=== PATIENT | female | born 1985 | race Caucasian/White ===

== ENCOUNTER 2016-09-27 14:44 | Emergency (ER) | payer OTHER ==
[~2016-09-27] VITALS: Ht 175.3 cm; Wt 107.0 kg
[~2016-09-27 14:44] MED LIST: BENTYL20 MG PO; CIPRO 500MG TA500 MG PO; FLAGYL 500MG.500 MG PO; NOMEDS XX; PHENERGAN 25MG.25 M1 PO; SEASONIQUE1 TAB PO; ZOFRAN4 MG PO
[2016-09-27] MEDS ORDERED: ZOLOFT 50MG TAB50 MG PO (15:04)
[2016-09-27] MEDS ORDERED: FLEXERIL10 MG PO (15:49)
--- NOTE | 2016-09-27 15:57 | Urgent Treatment Center Report ---
History of Present Issue Date/Time Seen by Provider 09/27/16 1512 Visit Reason Pt arrived:Walked Presenting Problem:PT STATES HER BACK WAS HURTING LAST NIGHT BEFORE BED. SHE SAID IT HURTS THE WORSE WHEN SHE TRIES TO SIT, LOWER RIGHT SIDE AND INTO HER RIGHT HIP. Location if Accident: Onset of symptoms date/time:/ or onset unknown for:MEDICAL HX UNKNOWN Have you (or family members/close friends) recently traveled outside the [place]? N If Yes, where/when: Have you had exposure to infectious disease within the past month? TB? Other? Specify: Here w/ girlfriend c/o low back pain radiating to right buttock. Denies N/T or pain into hip or RLE. No known injury. Reports she was ok last night. Washed dishes. Sat on the bed and noticed her back "getting tight". Woke this morning w / pain worse and a hard time getting up. Pain 5/10, aching but tight at times. 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 Urinating and stooling without difficulty. Took ibuprofen early this morning and tried to go into work but pain was worse while there. Came home and used heat and took a leftover norco from surgery. Pain improved "but not sure if due to ibuprofen, rest, heat or norco". No change ROM but more painful to use back, sit up straight, sit too long, walk too much. Better w/ some movement. Source patient, family (girlfriend) Exam Limitations no limitations ALLERGIES Coded Allergies: No Known Allergies (07/18/16) Home Medications Reported Medications Sertraline Hcl (Zoloft 50MG) 25 MG PO DAILY History Medical History General CAD? No Angina: No LA: No Hypertension? No Hyperlipidemia? No CHF? No DVT? No PE? No COPD? No Asthma? No Anemia? No GERD? No Gastric ulcers? No GI Bleed? No Hernia? No Thyroid Problems? No Hypothyroidism? No CVA? No Seizures? No Diabetes? No Insulin Dependent: No Insulin Pump: No Home FSBS? No Renal Insuffiency? No UTI? No Stones? No BPH? No GB Disease: Yes Nephritic Syndrome? No Asplenia? No Hepatitis? No Sickle Cell Disease? No Arthritis? No Migraines? No Cataracts? No Glaucoma? No MRSA? No HIV? No TB? No Anxiety? No Depression? No Cancer? No More? 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 Family History Family HX Diabetes Yes CAD No Hypertension No Hyperlipidemia No Cancer Yes TB No Social History Smoking Hx Smoker: Current Every Day Smoker Tobacco: Yes Type Cigarettes Packs/day < 1 Pack Alcohol Alcohol: No Review of Systems All Other Systems Reviewed and Negative Constitutional denies fever, denies malaise Respiratory denies shortness of breath Cardiovascular denies chest pain Gastrointestinal denies nausea Musculoskeletal see HPI Skin denies change in color, denies lesions, denies rash Psychiatric/Neurological see HPI Physical Exam Vital Signs Vital Signs Date Time Temp Pulse Resp B/P Pulse O2 O2 Flow FiO2 Ox Delivery Rate 09/27 1457 98.3 70 20 115/71 96 General Appearance mild distress, sitting up on exam table but leaning most of weight on left buttock Respiratory Status No: respiratory distress. Cardiovascular no peripheral edema Extremities normal range of motion (but slow to move), normal inspection, mild tenderness lower lumbosacral spine, moderate tenderness over right SI joint Strength 5 Lower Ext (L), 5 Lower Ext (R) Neurologic alert Reflexes Reflexes normal Yes (patellar) Skin intact, warm/dry Medical Decision Making LABS/Meds/Orders Pt receiving controlled substance in ED? No Results/Orders Current Medication Orders Sig/Darrell Start time Last Medication Dose Route Stop Time Status Admin Cyclobenzaprine HCl 10 MG ONCE ONE 09/27 1545 DC 09/27 PO 09/27 1546 1540 Cyclobenzaprine HCl 0 .STK-MED ONE 09/27 1535 DC PO Triamcinolone 0 .STK-MED ONE 09/27 1535 DC Acetonide .ROUTE Cyclobenzaprine HCl 5 MG ONCE ONE 09/27 1530 CAN PO 09/27 1531 Triamcinolone 40 MG ONCE ONE 09/27 1530 DC 09/27 Acetonide IM 09/27 1531 1539 Departure Departure Time of Disposition 1543 Disposition DC Home or Self Care(routine) Clinical Impression Primary Impression: Low back strain Qualifiers: Encounter type: initial encounter Qualified Code: S39.012A - Strain of muscle, fascia and tendon of lower back, initial encounter Condition STABLE Referrals Nohemi Jarvis MD (Family) Immediately for any new, worsening or persistant symptoms. Patient Instructions Cyclobenzaprine, DI for Low Back Pain Additional Instructions Encouraged to take it easy for 7-10 days. Avoid heavy lifting, bending, twisting. At risk for further injury easier while back strained. Stay active. Some ambulating and Range of motion will help improve pain. Sitting or walking too long can make pain worse. Work excuse for today. Declines longer work excuse. Ice 15 minutes every 1-2 hours today then 3-4x/day. Flexeril will cause drowsiness. Avoid driving or operating machinary after taking. Do not work after taking flexeril. You received a steroid injection today. Kenalog is a long acting steroid. If you have surgery in the next 30 days, please let them know you had a kenalog injection. Discharge Counseling Counseled pt/family regarding diagnosis, test results, medications/RX, home care, follow up needs Prescriptions Current Visit Scripts Cyclobenzaprine Hcl (Flexeril) 1 TABLET PO BID PRN muscle spasm #8 TAB at 4935
[2016-09-27 16:01] VITALS: BP 115/71
== END 2016-09-27 16:02 | disposition home or self-care (01) ==
LOC: UTC 14:44
DX: S39.012A Strain of muscle, fascia and tendon of lower back, initial encounter (principal)

== ENCOUNTER 2017-03-19 20:20 | Emergency (ER) | payer OTHER ==
[~2017-03-19] VITALS: Ht 175.3 cm; Wt 108.9 kg
[~2017-03-19 20:20] MED LIST changes: +FLEXERIL10 MG PO; +ZOLOFT 50MG TAB50 MG PO
--- NOTE | 2017-03-19 22:46 | Emergency Room Report ---
History of Present Illness Time Seen by 2036 Presenting Problem in Triage Pt arrived:Walked Presenting Problem:LEFT HAND INJURY,INVOLVING 4TH AND 5TH DIGITS PATIENT STATES TOILET CRUSHED BOTH FINGERS WHEN THROWING IN A METAL DUMPSTER Onset of symptoms date/time:03/19/[birth year]09/04/1953 or onset unknown for: Treatment Prior to Arrival: CLEANED WITH WATER BRIDGE EXPERT Provided by:SELF Sepsis Risk Assessment: Temp: 98.0 B/P: MAP: Pulse: 56 Resp: 18 Recent fever? N Clinical Suspician of Infection? N Mental Status: 1 - Regular (Normal Baseline) Sepsis Risk:Low Sepsis Risk Have you (or family members/close friends) recently traveled outside the [place]? N If Yes, where/when: Have you had exposure to infectious disease within the past month? TB? Other? Specify: Comment The patient smashed her LEFT ring and small fingers between a toilet and a dumpster. She complains of numbness and pain and decreased range of motion of the small finger. She has a skin wound of her ring finger and pain in the region of the middle phalanx. Tetanus shot is up-to-date. ALLERGIES Coded Allergies: No Known Allergies (03/19/17) Home Medications Active Scripts Cyclobenzaprine Hcl (Flexeril) 1 TABLET PO BID PRN muscle spasm #8 TAB Prov: 09/27/16 Reported Medications Sertraline Hcl (Zoloft 50MG) 25 MG PO DAILY History Medical History General CAD? No Angina: No CO: No Hypertension? No Hyperlipidemia? No CHF? No DVT? No PE? No COPD? No Asthma? No Anemia? No GERD? No Gastric ulcers? No GI Bleed? No Hernia? No Thyroid Problems? No Hypothyroidism? No CVA? No Seizures? No Diabetes? No Insulin Dependent: No Insulin Pump: No Home FSBS? No Renal Insuffiency? No End Stage Renal Disease? No UTI? No Stones? No BPH? No GB Disease: Yes Nephritic Syndrome? No Asplenia? No Hepatitis? No Sickle Cell Disease? No Arthritis? No Migraines? No Cataracts? No Glaucoma? No MRSA? No HIV? No TB? No Anxiety? No Depression? No Cancer? No More? 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 Family History Family Hx Diabetes Yes CAD No Hypertension No Hyperlipidemia No Cancer Yes TB No Social History Smoking Hx Smoker: Current Every Day Smoker Tobacco: Yes Type Cigarettes Packs/day < 1 Pack Alcohol Alcohol: No Review of Systems All Other Systems Reviewed and Negative Musculoskeletal see HPI Skin see HPI Psychiatric/Neurological see HPI, numbness, weakness Physical Exam Vital Signs Vital Signs Date Time Temp Pulse Resp B/P Pulse O2 O2 Flow FiO2 Ox Delivery Rate 03/197 98.0 55 18 116/63 99 03/19 2337 18 03/19 2310 67 17 123/71 100 03/19 2027 98.0 56 18 98 General Appearance normal appearance Respiratory Status No: respiratory distress. Cardiovascular regular rate/rhythm, normal peripheral pulses Extremities Ecchymosis and edema of the middle phalanx of the small finger with tenderness. Absent 2 point discrimination on both sides of the digit. Unable to flex, holds it in extension. Passive range of motion does not cause increased pain. small superficial skin wound middle phalanx volar side., there is a 1 cm laceration on the dorsum of the LEFT ring finger middle phalanx. On exploration it extends through the subcutaneous tissue. The wound is too small to visualize the extent, but insertion of a sterile forceps feels as if he goes down to bone. No foreign bodies or contamination found., she is able to flex and extend her ring finger against resistance. Limited by pain due to fracture. Distal capillary refill and sensation intact., there is also a bulge in injury of the dorsal fold of the nail of the ring finger with a 1 cm flap laceration. Neurologic alert Medical Decision Making LABS/Meds/Orders Pt receiving controlled substance in ED? Yes Castillo was queried for this patient? No Reason not queried - emergent pt cond=no time Results/Orders Current Medication Orders Sig/Darrell Start time Last Medication Dose Route Stop Time Status Admin Cephalexin 500 MG ONCE ONE 03/19 2330 DC 03/19 Monohydrate PO 03/19 2331 2336 Cephalexin 0 .STK-MED ONE 03/19 2324 DC Monohydrate PO Bupivacaine HCl 0 .STK-MED ONE 03/19 2254 DC .ROUTE Hydrocodone Bitart/ 1 TAB ONCE ONE 03/19 2215 DC 03/19 Acetaminophen PO 03/19 2216 2337 Hydrocodone Bitart/ 0 .STK-MED ONE 03/19 2203 DC Acetaminophen PO Orders Procedure Date/time Status HAND-LT-3 VIEWS 03/19 2031 Active XRAY/CT/US XRAY/CT/US XRAY hand Comment X-ray interpreted by Jack Winter M.D.: Minimally displaced comminuted fracture of the metaphysis of the ring finger middle phalanx. Progress - 11:20 PM: Cast with Dr. Jimenez, hand surgeon management professional at [facility] plastic surgery Department. She advises to close the wound loosely. Apply bandages and splint. Follow-up in the hand surgery, plastic surgery clinic this week, call in the morning to arrange that appointment. Prophylaxis with Keflex. Procedures Laceration/Wound Repair Progress Laceration Repair Performed by: JACK WINTER Consent: Verbal consent obtained. Risks and benefits: risks, benefits and alternatives were discussed Consent given by: patient Patient identity confirmed: verbally with patient Laceration location: LEFT ring finger Laceration length: 1 cm Local anesthetic: 0.5 percent bupivacaine, digital block Wound prep: Sterilly scrubbed with Hibiclens and irrigated with copious normal saline. Draping: Sterile in usual manner Patient sedated: no Debridement: None Exploration: Extension down through subcutaneous tissue. No foreign bodies or contamination. Layers Closed: Skin Suture material, skin: 5-0 Prolene Number of sutures: 2, one suture also placed in the flap wound of the dorsal fold of the nail. Patient tolerance: Patient tolerated the procedure well with no immediate complications Orthopedic/Inj/Splint Progress Splint Application Performed by: JACK WINTER Consent: Verbal consent obtained. Risks and benefits: risks, benefits and alternatives were discussed Consent given by: patient Patient identity confirmed: verbally with patient Splinting material: Orthoglass + ARGENIS wrap Type of splint: Ulnar gutter Location: LEFT Patient tolerance: Patient tolerated the procedure well with no immediate complications Neurovascular status intact with good sensation, capillary refill and movement before and after splint applied. Departure Departure Disposition DC Home or Self Care(routine) Clinical Impression Primary Impression: Fracture of middle phalanx of left ring finger Qualifiers: Encounter type: initial encounter Fracture type: open Fracture alignment: displaced Qualified Code: S62.625B - Displaced fracture of medial phalanx of left ring finger, initial encounter for open fracture Secondary Impressions: Crush injury to finger Qualifiers: Encounter type: initial encounter Qualified Code: S67.10XA - Crushing injury of unspecified finger(s), initial encounter Finger laceration Qualifiers: Encounter type: initial encounter Finger: ring finger Damage to nail status: with damage Foreign body presence: without foreign body Laterality: left Qualified Code: S61.315A - Laceration without foreign body of left ring finger with damage to nail, initial encounter Condition STABLE Patient Instructions DI for Finger Fracture, DI for Laceration Repair, How to Take Care of Your Splint Additional Instructions Schedule an appointment to be seen by at [facility] Plastic-Hand Surgery Clinic for follow-up. Call tomorrow morning to make an appointment to be seen this week. Case was discussed with Dr. Jimenez. [phone] Prescriptions Current Visit Scripts OXYCODONE HCL/ACETAMINOPHEN (Percocet 5-325 MG Tablet) 1 TAB PO Q6HP PRN pain #10 TAB Cephalexin (Keflex 500MG) 500 MG PO QID #40 [facility] ED Critical Care Critical Care No at 0146
[2017-03-19] MEDS ORDERED: PERCOCET1 TAB PO (23:38)
[2017-03-19] MEDS ORDERED: KEFLEX500 M1 PO (23:38)
[2017-03-19 23:47] VITALS: BP 116/63
--- NOTE | 2017-03-20 07:30 | RADIOLOGY REPORT PS360 ---
HAND-LT-3 VIEWS COMPARISON: None HISTORY: Left hand pain after crush injury TECHNIQUE: AP lateral and oblique views FINDINGS: The carpal bones appear intact. There is mild diffuse soft tissue swelling of the hand particularly the web space between the thumb and index finger. The metacarpals and phalanges all appear intact with no evidence of recent or old fracture and there are no foreign bodies. IMPRESSION: Soft tissue swelling, left hand negative for fracture
--- OUTSIDE RECORDS SUMMARY | 2017-03-22 18:38 | External Medical Summary Rpt ---
Author Author , [facility] Address Unknown Phone [email or web address] Support Name Relationship Address Phone HELENA, Next Of Kin [address], [phone] [place] [address] Purpose Continuity of Care Document - 01-11-2013 through 2016 Problems Code Diagnosis DOS Provider Status A03.9 SHIGELLOSIS , UNSPECIFIED E86.0 DEHYDRATION K52.9 NONINFECTIV E GASTROENTER ITIS AND COLITIS, UNSPECIFIED M54.9 DORSALGIA, UNSPECIFIED N12 TUBULO-INTE RSTITIAL NEPHRITIS, NOT SPCF ACUTE OR CHRONIC N83.209 UNSPECIFIED OVARIAN CYST, UNSPECIFIED SIDE R10.9 UNSPECIFIED ABDOMINAL PAIN S61.219A LACERATION W/O FB OF UNSP FINGER W/O DAMAGE TO NAIL, INIT S62.625A DISP FX OF MEDIAL PHALANX OF LEFT RING FINGER, INIT S67.10XA CRUSHING INJURY OF UNSPECIFIED FINGER(S), INITIAL ENCOUNTER Allergies, Adverse Reactions, Alerts Type Drug Allergy Adverse Reaction to Substance Substance Reaction Severity Codeine Unknown Unknown Medications Na ND Rx Da Fi Fi Am Da Di Ph RX Ph St me C No te ll ll ou ys ag ar # ys at rm s nt no ma ic us Or Da si cy ia de te s n re d SO 00 05 0 No DI 40 -2 UM 97 6- Lo 98 20 ng CH 30 13 er LO 9 RI Ac DE ti ve 0. 9% SO MATTY TI ON ON 00 05 0 No DA 64 -2 NS 16 6- Lo ET 08 20 ng RO 02 13 er N 5 HC Ac L ti 4 ve MG /2 ML AL KE 00 05 0 No TO 40 -2 RO 93 6- Lo LA 79 20 ng C 50 13 er 30 1 Ac MG ti /M ve L AL HY [address] 40 -2 OC 60 6- Lo OD 36 20 ng ON 56 13 er -A 2 CE Ac TA ti CO ve NO PH EN 5- 32 5 DI 51 05 0 No CY 07 -2 CL 90 6- Lo OM 11 20 ng IN 82 13 er E 0 10 Ac ti MG ve CA PS UL E Vital Signs 01-11-2013 19:34 Name Value Interpretat Reference Comment ion Range Body 98.2 [degF] Temperature BP 63 mm[Hg] Diastolic BP Systolic 110 mm[Hg] Heart 54 /min Rate/Pulse O2% 98 % Respiratory 20 /min Rate 01-11-2013 18:32 Name Value Interpretat Reference Comment ion Range Body 98.3 [degF] Temperature BP 74 mm[Hg] Diastolic BP Systolic 146 mm[Hg] Heart 65 /min Rate/Pulse O2% 97 % Respiratory 14 /min Rate Results Labs Lab Lab Date Result Refere Interp Status Commen Order Detail nces retati t Range on COMPREHENSIVE METABOLIC PANEL (01-11-2013 17:55) Glucose 97 74-106 complet 013 mg/dL ed Bld-mCn 17:55 c BUN 16 7-18 complet Bld-mCn 013 mg/dL ed c 17:55 Creat 1.1 0.6-1.0 complet SerPl-m 013 mg/dL ed Cnc 17:55 ESTIMAT 122 50-200 complet ED 013 ML/MIN ed CREATIN 17:55 INE CLEARAN CE GFR 60 59- complet (ESTIMA 013 ML/MIN ed RC) 17:55 Sodium 141 136-145 complet SerPl-s 013 mmoL/L ed Cnc 17:55 Potassi 3.9 3.5-5.1 complet um 013 mmoL/L ed SerPl-s 17:55 Cnc Chlorid 103 98-107 complet e 013 mmoL/L ed SerPl-s 17:55 Cnc CO2 28 21.0-32 complet SerPl-s 013 mmoL/L .0 ed Cnc 17:55 Calcium 8.7 8.5-10. complet 013 mg/dL 1 ed SerPl-m 17:55 Cnc Prot 7.7 6.4-8.2 complet SerPl-m 013 gm/dL ed Cnc 17:55 Albumin 4.2 3.4-5.0 complet 013 gm/dL ed SerPl-m 17:55 Cnc Globuli 05-26-2 3.5 1.3-3.2 complet n 013 gm/dL ed Ser-mCn 17:55 c Albumin 01-11-2 1.2 UNK 1.1-1.8 complet /Glob 013 ed SerPl-m 17:55 Rto Bilirub 01-11-2 0.4 0.2-1.0 complet 013 mg/dL ed SerPl-m 17:55 Cnc AST --2 19 U/L 15-37 complet SerPl-c 013 ed Cnc 17:55 ALT --2 35 U/L 30-65 complet SerPl-c 013 ed Cnc 17:55 ALP 05--2 78 U/L 50-136 complet SerPl-c 013 ed Cnc 17:55 Amylase SerPl-cCnc (01-11-2013 17:55) Amylase 01-11-2 65 U/L 25-115 complet 013 ed SerPl-c 17:55 Cnc LIPASE (01-11-2013 17:55) LIPASE 01-11-2 220 U/L 73-393 complet 013 ed 17:55 CBC with AUTO DIFF (01-11-2013 17:55) WBC # 05-26-2 7.6 4.8-10. complet Bld 013 K/MM3 8 ed Auto 17:55 RBC # --2 4.23 4.2-5.4 complet Bld 013 M/mm3 ed Auto 17:55 Hgb --2 13.5 12.2-16 complet Bld-mCn 013 g/dL .2 ed c 17:55 Hct Fr 01-11-2 39.7 % 37.0-47 complet Bld 013 .0 ed 17:55 MCV RBC 01-11-2 94.0 fl 82.2-97 complet 013 .8 ed 17:55 MCH RBC 05-26-2 31.8 pg 27-31.2 complet Qn 013 ed Auto 17:55 MEAN --2 33.9 31.8-35 complet CORPUSC 013 g/dl .4 ed ULAR 17:55 HGB CONC RDW RBC 05-26-2 12.3 % 11.5-17 complet Auto 013 .5 ed 17:55 Platele --2 274 142-424 complet t Bld 013 K/mm3 ed Ql 17:55 Manual MEAN 05-26-2 7.9 fl 7.4-10. complet PLATELE 013 4 ed T 17:55 VOLUME Granulo 05-26-2 48.7 % 37.0-80 complet cytes 013 .0 ed Fr Bld 17:55 Auto LYMPH % 05-26-2 39.4 % 10-50.0 complet 013 ed 17:55 Monocyt 05-26-2 6.5 % 1.7-9.3 complet es Fr 013 ed Bld 17:55 Auto Eosinop 05-26-2 4.4 % 0.1-12. complet hil Fr 013 0 ed Bld 17:55 Auto Basophi 05-26-2 1.0 % 0.1-2.0 complet ls Fr 013 ed Bld 17:55 Auto Granulo 05-26-2 3.7 1.8-7.8 complet cytes # 013 K/mm3 ed Bld 17:55 Auto Lymphoc 05-26-2 3.0 0.7-4.5 complet ytes Fr 013 K/mm3 ed Bld 17:55 Auto Monocyt 05-26-2 0.5 0.1-1.0 complet es # 013 K/mm3 ed Bld 17:55 Auto Eosinop 05-26-2 0.3 0.0-0.4 complet hil # 013 K/mm3 ed Bld 17:55 Auto Basophi 05-26-2 0.1 0-0.2 complet ls # 013 K/MM3 ed Bld 17:55 Auto B-HCG Ur Ql (01-11-2013 17:55) B-HCG 05-26-2 NEGATIV NEG complet Ur Ql 013 E ed 17:55 URINALYSIS/COMPLETE (01-11-2013 17:55) URINE 05-26-2 YELLOW YELLOW complet COLOR 013 ed 17:55 URINE 05-26-2 SL CLEAR complet APPEARA 013 CLOUDY ed NCE 17:55 URINE 05-26-2 NEGATIV NEG complet GLUCOSE 013 E ed - 17:55 DIPSTIC K URINE 05-26-2 NEGATIV NEG complet BILIRUB 013 E ed IN - 17:55 DIPSTIC K URINE 05-26-2 NEGATIV NEG complet KETONE 013 E mg/dL ed 17:55 URINE 05-26-2 1.025 1.005-1 complet SPECIFI 013 UNK .030 ed C 17:55 GRAVITY URINE 05-26-2 NEGATIV NEG complet BLOOD 013 E ed 17:55 URINE 05-26-2 6.0 UNK 5.0-8.5 complet PH 013 ed 17:55 URINE 05-26-2 NEGATIV NEG complet PROTEIN 013 E mg/dL ed - 17:55 DIPSTIC K URINE 05-26-2 0.2 NEG complet UROBILI 013 E.U./dL ed NOGEN - 17:55 DIPSTIC K URINE 05-26-2 NEGATIV NEG complet NITRATE 013 E ed - 17:55 DIPSTIC K URINE 05-26-2 NEGATIV NEG complet LEUK 013 E ed ESTERAS 17:55 E URINE 05-26-2 20-50 0-5 complet SQUAMOU 013 #/hpf ed S CELLS 17:55 URINE 05-26-2 1+ NONE complet AMORPH 013 ed SEDIMEN 17:55 T Encounters Encounter Start End Date Code Location Performer Type Date Emergency JORGE Richmond MD (ER) 3 17:44 3 19:34 [facility] [place]
--- OUTSIDE RECORDS SUMMARY | 2017-03-22 18:38 | External Medical Summary Rpt ---
Author Author , [place] [facility] Address Unknown Phone [email or web address] Support Name Relationship Address Phone HELENA, Next Of Kin [address], [phone] [place] [address] Purpose Continuity of Care Document - 01-11-2013 [...] er -A 2 CE Ac TA ti [place] ve NO PH EN 5- 32 5 [...] Richmond MD (ER) 3 17:44 3 19:34 [facility] [place]
--- OUTSIDE RECORDS SUMMARY | 2017-03-22 18:39 | External Medical Summary Rpt ---
Demographics Preferred Language Iraqi Marital Status Unknown Congregational Affiliation Unknown Race Unknown Ethnic Group Unknown Author Author , [place] [facility] Address Unknown Phone Immunization Unable to retrieve immunization data due to connection failure with Immunization Registry. Please try again later.
--- OUTSIDE RECORDS SUMMARY | 2017-03-22 18:39 | External Medical Summary Rpt ---
Demographics Preferred Language Bahamian Marital Status Unknown Voodoo Affiliation Unknown Race Unknown Ethnic Group Unknown Author Author , [place] [facility] Address Unknown Phone Immunization Unable to retrieve immunization data due to connection failure with Immunization Registry. Please try again later.
--- OUTSIDE RECORDS SUMMARY | 2017-03-22 18:39 | External Medical Summary Rpt ---
Author Author [employer] Organization [employer] Address Unknown Phone Unavailable Purpose Continuity of Care Document - through 2016
--- OUTSIDE RECORDS SUMMARY | 2017-03-22 18:39 | External Medical Summary Rpt ---
Author Author [employer], [employer] [facility] [employer] Address Unknown Phone Unavailable
== END 2017-03-19 23:52 | disposition home or self-care (01) ==
LOC: ER 20:20
PROC: 0JQK0ZZ Repair Left Hand Subcutaneous Tissue and Fascia, Open Approach (ICD-10-PCS; principal; 2017-03-19)
DX: S61.315A Laceration without foreign body of left ring finger with damage to nail, initial encounter (principal); S62.625B Displaced fracture of middle phalanx of left ring finger, initial encounter for open fracture; S67.10XA Crushing injury of unspecified finger(s), initial encounter

== ENCOUNTER 2017-05-08 13:01 | Emergency (ER) | payer OTHER ==
[~2017-05-08] VITALS: Ht 175.3 cm; Wt 108.0 kg
--- NOTE | 2017-05-08 13:21 | Urgent Treatment Center Report ---
History of Present Issue Date/Time Seen by Provider 05/08/17 1311 Visit Reason Pt arrived:Walked Presenting Problem:PT HAS WHEEZINESS AND SOA. Location if Accident: Onset of symptoms date/time:/ or onset unknown for:MEDICAL HX UNKNOWN Have you (or family members/close friends) recently traveled outside the [place]? N If Yes, where/when: Have you had exposure to infectious disease within the past month? TB? Other? Specify: Patient not been feeling well for several days State that she has felt feverish and having some wheezing and shortness of breath at times, States that last night she was woke up coughing and she had to sit up and rest because she felt like she could not breath well when she was laying down ALLERGIES Coded Allergies: No Known Allergies (03/19/17) Home Medications Reported Medications Sertraline Hcl (Zoloft 50MG) 25 MG PO DAILY History Medical History General CAD? No Angina: No MD: No Hypertension? No Hyperlipidemia? No CHF? No DVT? No PE? No COPD? No Asthma? No Anemia? No GERD? No Gastric ulcers? No GI Bleed? No Hernia? No Thyroid Problems? No Hypothyroidism? No CVA? No Seizures? No Diabetes? No Insulin Dependent: No Insulin Pump: No Home FSBS? No Renal Insuffiency? No UTI? No Stones? No BPH? No GB Disease: Yes Nephritic Syndrome? No Asplenia? No Hepatitis? No Sickle Cell Disease? No Arthritis? No Migraines? No Cataracts? No Glaucoma? No MRSA? No HIV? No TB? No Anxiety? No Depression? No Cancer? No More? No Immunization HX DT/Tetanus 1-4 Years Ago Flu Refused Pneumonia Received In Past Surgical Hx Previous Surgery?Y ACL R BREAST X4 BREAST IMPLANT BREAST REDUCTION GALLBLADDER CYST REMOVED ON NECK Family History Family HX Diabetes Yes CAD No Hypertension No Hyperlipidemia No Cancer Yes TB No Social History Smoking Hx Smoker: Current Every Day Smoker Tobacco: Yes Type Cigarettes Packs/day < 1 Pack Alcohol Alcohol: No Review of Systems All Other Systems Reviewed and Negative Constitutional chills, fever Respiratory cough, shortness of breath, wheezing Physical Exam Vital Signs Vital Signs Date Time Temp Pulse Resp B/P Pulse O2 O2 Flow FiO2 Ox Delivery Rate 05/08 1306 97.9 98 24 128/82 96 General Appearance Patient appears ill, sweating, pale in color Respiratory Status Yes: trachea midline, chest symmetrical, non tender chest. No: respiratory distress. Lung Sounds bilateral: rhonchi, wheezing. Cardiovascular normal exam, regular rate/rhythm Neurologic alert, review coordinator II-XII nml as tested, normal exam, no motor/sensory deficits, oriented x 3 Medical Decision Making LABS/Meds/Orders Pt receiving controlled substance in ED? No Results/Orders Current Medication Orders Sig/Darrell Start time Last Medication Dose Route Stop Time Status Admin Albuterol/Ipratropium 0 .STK-MED ONE 05/08 1317 DC INH Albuterol/Ipratropium 3 ML ONCE ONE 05/08 1315 DC 05/08 INH 05/08 1316 1318 Orders Procedure Date/time Status RT REQUEST DUONEB 05/08 1304 Active CHEST(2 VIEWS-NOT PORTABLE) 05/08 1304 Active XRAY/CT/US XRAY/CT/US XRAY chest Xray Results no infiltrates Comment Discussed with Dr Garcia Departure Departure Time of Disposition 1331 Disposition DC Home or Self Care(routine) Clinical Impression Primary Impression: Upper respiratory infection Qualifiers: URI type: unspecified URI Qualified Code: J06.9 - Acute upper respiratory infection, unspecified Condition STABLE Referrals [facility] (PCP) Patient Instructions Cough, Guaifenesin Additional Instructions Take medication as prescribed FOllow up with family doctor Over the coutner Motrin or Tylenol as needed for pain Return if needed Discharge Counseling Counseled pt/family regarding diagnosis Prescriptions Current Visit Scripts CEFDINIR (Cefdinir) 300 MG PO BID #20 CAP Methylprednisolone (Medrol Dose Shahbaz) 4 MG PO UD #1 SHAHBAZ TAKE DIRECTED ON PACKAGING ALBUTEROL (Proventil Hfa Inhaler) 2 PUFF IH Q6H PRN #1 CAN Ref 2 at 1336
[2017-05-08 13:41] VITALS: BP 128/82
--- NOTE | 2017-05-08 14:50 | RADIOLOGY REPORT PS360 ---
CHEST(2 VIEWS-NOT PORTABLE) HISTORY: SOA ORDERING PHYSICIAN: PATIENT AGE: 31 years COMPARISON: None available FINDINGS: The cardiomediastinal silhouette and pulmonary vascularity are within normal limits. The lungs are clear without infiltrates, suspicious nodules, or pleural effusions. No acute bony abnormalities. IMPRESSION: Negative chest, no acute finding
== END 2017-05-08 13:45 | disposition home or self-care (01) ==
LOC: UTC 13:01
DX: J06.9 Acute upper respiratory infection, unspecified (principal); Z79.899 Other long term (current) drug therapy; F17.210 Nicotine dependence, cigarettes, uncomplicated

== ENCOUNTER 2017-06-22 12:48 | Emergency (ER) | payer OTHER ==
[~2017-06-22] VITALS: Ht 175.3 cm; Wt 106.6 kg
[~2017-06-22 12:48] MED LIST changes: +KEFLEX500 M1 PO; +MEDROL 4MG. DOSE4 MG PO; +OMNICEF 300 MG300 MG PO; +PERCOCET1 TAB PO; +PROVENTIL0.09 MG/A1 IH
--- OUTSIDE RECORDS SUMMARY | 2017-06-22 12:53 | External Medical Summary Rpt | CCD ---
Author Author , [facility] Address Unknown Phone [email or web address] Support Name Relationship Address Phone HELENA, Next Of Kin [address], [phone] [place] [address] Purpose Continuity of Care Document - 01-11-2013 [...] Ac MG ti /M ve L AL AP 00 05 0 No AP 40 -2 /H 60 6- Lo YD 36 20 ng RO 56 13 er CO 2 DO Ac NE ti ve 32 5 MG -5 MG DI 51 05 0 No CY 07 [...] 013 gm/dL ed Ser-mCn 17:55 c Albumin 05-26-2 1.2 UNK 1.1-1.8 complet /Glob 013 ed SerPl-m 17:55 Rto Bilirub 05-26-2 0.4 0.2-1.0 complet 013 mg/dL ed SerPl-m 17:55 Cnc AST 05-26-2 19 U/L 15-37 complet SerPl-c 013 ed Cnc 17:55 ALT 05-26-2 35 U/L 30-65 complet SerPl-c 013 ed Cnc 17:55 ALP 05-26-2 78 U/L 50-136 complet SerPl-c 013 ed Cnc 17:55 Amylase SerPl-cCnc (01-11-2013 17:55) Amylase 05-26-2 65 U/L 25-115 complet 013 ed SerPl-c 17:55 Cnc LIPASE (01-11-2013 17:55) LIPASE 05-26-2 220 U/L 73-393 complet 013 ed 17:55 CBC with AUTO DIFF (01-11-2013 17:55) WBC # 05-26-2 7.6 4.8-10. complet Bld 013 K/MM3 8 ed Auto 17:55 RBC # 05-26-2 4.23 4.2-5.4 complet Bld 013 M/mm3 ed Auto 17:55 Hgb 05-26-2 13.5 12.2-16 complet Bld-mCn 013 g/dL .2 ed c 17:55 Hct Fr 05--2 39.7 % 37.0-47 complet Bld 013 .0 ed 17:55 MCV RBC 05-26-2 94.0 fl 82.2-97 complet 013 .8 ed 17:55 MCH RBC 05-26-2 31.8 pg 27-31.2 complet Qn 013 ed Auto 17:55 MEAN 05-26-2 33.9 31.8-35 complet CORPUSC 013 g/dl .4 ed ULAR 17:55 HGB CONC RDW RBC 05-26-2 12.3 % 11.5-17 complet Auto 013 .5 ed 17:55 Platele 05-26-2 274 142-424 complet t Bld 013 K/mm3 [...] Richmond MD (ER) 3 17:44 3 19:34 [facility]
--- OUTSIDE RECORDS SUMMARY | 2017-06-22 12:53 | External Medical Summary Rpt | CCD ---
Author Author , [facility] Address Unknown Phone [email or web address] Support Name Relationship Address Phone HELENA, Next Of Kin [address], [phone] [place] [address] Purpose Continuity of Care Document - 01-11-2013 [...] Richmond MD (ER) 3 17:44 3 19:34 [facility]
--- OUTSIDE RECORDS SUMMARY | 2017-06-22 12:54 | External Medical Summary Rpt | CCD ---
Demographics Preferred Language French Marital Status Unknown Muslim Affiliation Unknown Race Unknown Ethnic Group Unknown Author Author , [place] [facility] Address Unknown Phone Immunization Unable to retrieve immunization data due to connection failure with Immunization Registry. Please try again later.
--- OUTSIDE RECORDS SUMMARY | 2017-06-22 12:54 | External Medical Summary Rpt | CCD ---
Demographics Preferred Language Bengali Marital Status Unknown Oriental Orthodox Affiliation Unknown Race Unknown Ethnic Group Unknown Author Author , [place] [facility] Address Unknown Phone Immunization Unable to retrieve immunization data due to connection failure with Immunization Registry. Please try again later.
--- OUTSIDE RECORDS SUMMARY | 2017-06-22 12:54 | External Medical Summary Rpt ---
Author Author [facility], [employer] Organization [employer] Address Unknown Phone Unavailable
--- NOTE | 2017-06-22 13:09 | Urgent Treatment Center Report ---
History of Present Issue Date/Time Seen by Provider 06/22/17 1303 Visit Reason Pt arrived:Walked Presenting Problem:PT C/O RT EAR PAIN, COUGH, AND CONGESTION Location if Accident: Onset of symptoms date/time:/ or onset unknown for:MEDICAL HX UNKNOWN Have you (or family members/close friends) recently traveled outside the [place]? N If Yes, where/when: Have you had exposure to infectious disease within the past month? TB? Other? Specify: Patient state that she has been having pain in her right ear, cough and chest congestion State that she has continued to get worse over the last couple of days State that it feels like she is listening through water or something and state that her hearing is muffled State that she had used some drops in the right ear but still not had any relief and feels like there is alot of pressure in her ear ALLERGIES Coded Allergies: No Known Allergies (03/19/17) Home Medications Active Scripts CEFDINIR (Cefdinir) 300 MG PO BID #20 CAP Prov: 05/08/17 Methylprednisolone (Medrol Dose Linda) 4 MG PO UD #1 LINDA Prov: 05/08/17 ALBUTEROL (Proventil Hfa Inhaler) 2 PUFF IH Q6H PRN #1 CAN Ref 2 Prov: 05/08/17 Reported Medications Sertraline Hcl (Zoloft 50MG) 25 MG PO DAILY History Medical History General CAD? No Angina: No CO: No Hypertension? No Hyperlipidemia? No CHF? No DVT? No PE? No COPD? No Asthma? No Anemia? No GERD? No Gastric ulcers? No GI Bleed? No Hernia? No Thyroid Problems? No Hypothyroidism? No CVA? No Seizures? No Diabetes? No Insulin Dependent: No Insulin Pump: No Home FSBS? No Renal Insuffiency? No UTI? No Stones? No BPH? No GB Disease: Yes Nephritic Syndrome? No Asplenia? No Hepatitis? No Sickle Cell Disease? No Arthritis? No Migraines? No Cataracts? No Glaucoma? No MRSA? No HIV? No TB? No Anxiety? No Depression? No Cancer? No More? No Immunization HX DT/Tetanus 1-4 Years Ago Flu Refused Pneumonia Received In Past Surgical Hx Previous Surgery?Y ACL R BREAST X4 BREAST IMPLANT BREAST REDUCTION GALLBLADDER CYST REMOVED ON NECK Family History Family HX Diabetes Yes CAD No Hypertension No Hyperlipidemia No Cancer Yes TB No Social History Smoking Hx Smoker: Former Smoker Tobacco: Yes Type Cigarettes Packs/day < 1 Pack Alcohol Alcohol: No Review of Systems All Other Systems Reviewed and Negative ENT ear pain. Respiratory cough Physical Exam Vital Signs Vital Signs Date Time Temp Pulse Resp B/P Pulse O2 O2 Flow FiO2 Ox Delivery Rate 06/22 1344 98.0 99 20 116/78 96 06/22 1257 98.0 99 20 116/78 96 General Appearance normal appearance, WD/WN, no apparent distress Ear, Nose, Throat nasal congestion, Right ear bright red, TM buldging cloudy, left ear red, TM buldging cloudy Respiratory Status Yes: trachea midline, chest symmetrical, non tender chest. No: respiratory distress. Lung Sounds bilateral: normal breath sounds, lungs clear. Cardiovascular normal exam, regular rate/rhythm, no peripheral edema Neurologic alert, normal exam, oriented x 3 Medical Decision Making LABS/Meds/Orders Pt receiving controlled substance in ED? No Results/Orders Orders Procedure Date/time Status CHEST(2 VIEWS-NOT PORTABLE) 06/22 1254 Active Departure Departure Time of Disposition 1319 Disposition DC Home or Self Care(routine) Clinical Impression Primary Impression: Bilateral otitis media Qualifiers: Otitis media type: unspecified Qualified Code: H66.93 - Otitis media, unspecified, bilateral Condition STABLE Referrals Nohemi Jarvis MD (Family) Patient Instructions DI for Otitis Media (Middle Ear Infection)-Child Additional Instructions * Monitor Temp. Tylenol and/or Ibuprofen as needed. ER if fever is no less than 101 despite alternating Tylenol and Ibuprofen * Encourage fluids, water, Gatorade, powerade, pedialyte if /toddler/or child * Warm salt water gargles for throat irritation *Warm fluids *Sore throat lozenges *Sleep elevated *humidifier or vaporizer Lots of rest Increase fluids, water, Gatorade, powerade Follow up IMMEDIATELY for new or worsening of symptoms OR no noticeable improvement over the next 48-72 hours. 911 immediately for any life threatening symptoms such as chest pain or difficulty breathing Discharge Counseling Counseled pt/family regarding diagnosis, medications/RX, home care, follow up needs Prescriptions Current Visit Scripts AMOXICILLIN/POTASSIUM CLAV (Augmentin 500-125 Tablet) 1 TAB PO BID #20 TAB D-METHORPHAN HB/P-EPD HCL/BPM (Bromfed Dm Cough Syrup) 10 ML PO Q4HP PRN cough #120 SYR Pseudoephedrine Hcl (Sudafed 12 Hour) 120 MG PO Q12 #[address] Methylprednisolone (Medrol Dose Linda) 4 MG PO UD #1 LINDA TAKE DIRECTED ON PACKAGING Fluticasone Propionate (Flonase 50 Mcg Nasal [place]) 2 SPRAY NA DAILY #1 BOT at 1409
[2017-06-22] MEDS ORDERED: BROMFED DM COU118 ML PO (13:26)
[2017-06-22] MEDS ORDERED: MEDROL 4MG. DOSE4 MG PO (13:26)
[2017-06-22] MEDS ORDERED: SUDAFED 12HR120 MG PO (13:26)
[2017-06-22] MEDS ORDERED: FLONASE 50 MCG16 GM (13:26)
[2017-06-22] MEDS ORDERED: AUGMENTIN1 TA1 PO (13:26)
[2017-06-22 13:44] VITALS: BP 116/78
--- NOTE | 2017-06-22 15:27 | RADIOLOGY REPORT PS360 ---
CHEST(2 VIEWS-NOT PORTABLE) HISTORY: COUGH, CONGESTION Patient Age: 31 years: Female Ordering Physician: BEATRIZ MENDES APRN TECHNIQUE: PA and lateral chest COMPARISON :05/08/2017 CXR FINDINGS Less optimal inspiration today. Diaphragm on again to the anterior fifth rib versus 6 rib on previous study. This crowds markings bilaterally. Most likely viewing accentuation markings due to this feature less likely mild vascular engorgement in this age patient This poor inspiration also exaggerates heart size. Heart appears slightly larger borderline enlarged with left ventricular configuration. No focal pneumonia is identified. Chest wall and T-spine intact IMPRESSION: Less optimal inspiration today accentuates markings bilaterally as well as accentuates heart size.. With this considered and doubt there is been a significant interval change. Mild accentuation of central markings today more likely due to the less inspiration. Doubt reflects subtle central airway inflammation or subtle central pneumonitis
== END 2017-06-22 13:44 | disposition home or self-care (01) ==
LOC: UTC 12:48
DX: H66.93 Otitis media, unspecified, bilateral (principal); Z87.891 Personal history of nicotine dependence